=== PATIENT | female | born 2000 | race African-American/Black ===

== ENCOUNTER 2020-09-22 05:10 | Emergency (ER) | payer OTHER ==
[~2020-09-22] VITALS: Ht 172.7 cm; Wt 74.2 kg
[2020-09-22] MEDS ORDERED: CETI5SOL3 PO (05:21)
[2020-09-22 06:15] VITALS: BP 113/73
[2020-09-22] MEDS ORDERED: predniSONE 20 MG TAB PO ONE (06:35)
[2020-09-22] MEDS ORDERED: LORATADINE 10 MG TAB PO ONE (06:35)
[2020-09-22] MEDS ORDERED: VENTAER INH (06:37)
[2020-09-22] MEDS ORDERED: CLAR10CA3 PO (06:37)
[2020-09-22] MEDS ORDERED: PRED20TA PO (06:37)
== END 2020-09-22 06:48 | disposition home or self-care (01) ==
LOC: M ED 05:10
DX: L29.9 Pruritus, unspecified (principal); T78.40XA Allergy, unspecified, initial encounter
CPT/HCPCS: 99284; J7512

== ENCOUNTER 2020-10-03 11:33 | Inpatient (IN) | payer OTHER ==
[~2020-10-03] VITALS: Ht 172.7 cm; Wt 71.0 kg
[~2020-10-03 11:33] MED LIST: CETI5SOL3 PO; CLAR10CA3 PO; PRED20TA PO; VENTAER INH
[2020-10-03] MEDS ORDERED: NS 1,000 ML IV SCH (12:00)
[2020-10-03 12:14] LABS: BASO % 0.3 % (0.0-1.0); EOS % 0.4 % (0.0-3.0); HEMATOCRIT 41.6 % (36.0-47.0); HEMOGLOBIN 14.2 g/dl (12.0-15.5); LYMPH # 1.8 10^3/uL (1.5-5.0); LYMPH % 16.7 % (24.0-44.0); MEAN CORPUSCULAR HEMOGLOBIN 30.5 pg (27.0-33.0); MEAN CORPUSCULAR HGB CONC 34.1 g/dl (32.0-36.5); MEAN CORPUSCULAR VOLUME 89.5 fl (80.0-96.0); MONO # 0.5 10^3/uL (0.0-0.8); MONO % 4.6 % (2.0-8.0); NEUTROPHILS # 8.4 10^3/uL (1.5-8.5); NEUTROPHILS % 77.5 % (36.0-66.0); PLATELET COUNT, AUTOMATED 254 10^3/uL (150-450); RED BLOOD COUNT 4.65 10^6/uL (4.00-5.40); WHITE BLOOD COUNT 10.9 10^3/uL (4.0-10.0)
[2020-10-03 12:33] LABS: AMPHETAMINES LEVEL URINE NEGATIVE (NEGATIVE); BARBITURATES URINE NEGATIVE (NEGATIVE); BENZODIAZEPINES URINE NEGATIVE (NEGATIVE); CANNABINOIDS URINE NEGATIVE (NEGATIVE); COCAINE METABOLITE URINE NEGATIVE (NEGATIVE); METHADONE URINE NEGATIVE (NEGATIVE); OPIATES URINE NEGATIVE (NEGATIVE); PHENCYCLIDINE URINE NEGATIVE (NEGATIVE)
[2020-10-03 12:34] LABS: HCG, SERUM QUALITATIVE NEGATIVE (NEGATIVE)
[2020-10-03 12:47] LABS: ACETAMINOPHEN LEVEL < 2.0 UG/ML (10.0-30.0); ALBUMIN 4.3 GM/DL (3.2-5.2); ALT/SGPT 19 U/L (12-78); BILIRUBIN,DIRECT 0.3 MG/DL (0.0-0.2); BLOOD UREA NITROGEN 8 MG/DL (7-18); CALCIUM LEVEL 9.4 MG/DL (8.5-10.1); CARBON DIOXIDE LEVEL 25 MEQ/L (21-32); CHLORIDE LEVEL 108 MEQ/L (98-107); CPK CREATINE PHOSPHOKINASE 91 U/L (26-192); CREATININE FOR GFR 0.88 MG/DL (0.55-1.30); ETHYL ALCOHOL (ETHANOL) 0.052 % (0.000-0.010); GLOMERULAR FILTRATION RATE > 60.0 (>60); GLUCOSE, FASTING 78 MG/DL (70-100); POTASSIUM SERUM 3.9 MEQ/L (3.5-5.1); SALICYLATE LEVEL < 1.7 MG/DL (5.0-30.0); SODIUM LEVEL 140 MEQ/L (136-145); THYROID STIMULATING HORMONE 0.822 uIU/ML (0.358-3.740); TOTAL PROTEIN 7.6 GM/DL (6.4-8.2)
[2020-10-03] MEDS ORDERED: VITMTA PO (17:21)
[2020-10-03] MEDS ORDERED: BENA25CA4 PO ×2 (17:21)
[2020-10-03] MEDS ORDERED: VENTAER INH (17:21)
[2020-10-03] MEDS ORDERED: HOME MED LIST COMPLETE! XX SCH (17:25)
[2020-10-03] MEDS ORDERED: MAALOX 30 ML SUSP *UDC PO PRN (19:05)
[2020-10-03] MEDS ORDERED: traZODone 50 MG TAB PO PRN (19:05)
[2020-10-03] MEDS ORDERED: ACETAMINOPHEN TAB 650MG DOSE (2X325MG) PO PRN (19:05)
[2020-10-03] MEDS ORDERED: OLANZapine ORAL DISINTEGRATING TAB 5MG PO PRN (19:05)
[2020-10-03] MEDS ORDERED: ALBUTEROL 90 MCG/ACT 8GM HFA INHALER INH PRN (19:05)
[2020-10-03] MEDS ORDERED: MOM 30ML SUSPENSION UDC PO PRN (19:05)
[2020-10-03 20:38] LABS: RSV AMPLIFICATION NEGATIVE (NEGATIVE)
[2020-10-03 22:14] VITALS: BP 120/75
[2020-10-04] MEDS: NICOTINE 21MG/24HR 1 EA TRANSDERMAL TD SCH (09:00)
--- NOTE | 2020-10-04 09:29 | ECGEPIP ---
[facility] - ED Test Date: 2020-10-03 Pat Name: MARY DAVIES Department: Room: - Gender: Female Yarn Inspector: eileen : 2000 Requested By: Martina Salas Order Number: [id number] Reading MD: Martina Salas Measurements Intervals [place] Rate: 89 P: 59 [place]: 160 QRS: 43 QRSD: 82 T: 38 QT: 360 QTc: 438 Interpretive Statements Normal sinus rhythm No prior Electronically Signed on 10-04-2020 9:28:52 EDT by Martina Salas
[2020-10-04] MEDS: MULTIVITAMINS/MINERALS THERAP 1 TAB PO SCH (10:41)
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
--- NOTE | 2020-10-04 15:27 | HPEPDOC ---
[facility] Medical History & Physical Date of Admission Oct 03, 2020 Date of Service: Oct 04, 2020 History and Physical CHIEF COMPLAINT: Suicidal Attempt HISTORY OF PRESENT ILLNESS: Ms. Perez is a 20-year-old female history of depression who was in the inpatient mental health unit after a suicide attempt with Benadryl. She is seen this afternoon. She denies any fever or chills, chest pain, dyspnea, abdominal pain, diarrhea, or dysuria. She does not have any further questions or concerns. PAST MEDICAL HISTORY: 1. Depression PAST SURGICAL HISTORY: 1. Ribera teeth removal. SOCIAL HISTORY: Tobacco use: Denies ETOH: Occasional alcoholic drink on the weekends Illicit drug use: Denies FAMILY HISTORY: Father: She does not know her father Mother: Diabetes mellitus ALLERGIES: Please see below. REVIEW OF SYSTEMS: CONSTITUTIONAL: Denies any fever or chills. ENT: Denies sore throat. RESPIRATORY: Denies shortness of breath. Denies cough. CARDIOVASCULAR: Denies chest pain. GASTROINTESTINAL: Denies abdominal pain. Denies diarrhea. Denies constipation GENITOURINARY: Denies dysuria. CUTANEOUS: Denies rashes. HEMATOLOGY: Denies bruising. NEUROLOGICAL: Denies neuropathy. PSYCHOLOGICAL: Denies anxiety. Denies depression. HOME MEDICATIONS: Please see below. PHYSICAL EXAMINATION: VITAL SIGNS: Temperature 98.2, pulse 66, respiratory rate 20, blood pressure 120/75, pulse oximetry 99% on room air. GENERAL: Comfortable, in no apparent distress. HEENT: Head normocephalic/atraumatic, EOMI, sclera clear. NECK: Supple. RESPIRATORY: Lungs clear to auscultation bilaterally, no rales, wheeze or rhonchi. CARDIOVASCULAR: Regular rate and rhythm. ABDOMEN: Soft, nontender, no guarding or rebound tenderness. Normal bowel sounds. MUSCLE SKELETAL: Muscle strength 5/5 in all extremities. NEUROLOGICAL: CN 312 grossly intact, no focal deficits noted. PSYCHOLOGICAL: Normal mood and affect LABORATORY DATA: See below. IMAGING: None MICROBIOLOGY: Please see below. ASSESSMENT and PLAN: 1. Suicide attempt by overdose Being managed in the inpatient mental health unit 2. Depression Being managed in the inpatient mental health unit Thank you for consulting us. We will sign off at this time. If there is any further questions or concerns, please do not hesitate to contact us Vital Signs Vital Signs Date Time Temp Pulse Resp B/P (MAP) Pulse Ox O2 Delivery O2 Flow Rate FiO2 10/03/20 22:14 98.2 66 20 120/75 (90) 99 Room Air Laboratory Data Labs 24H Laboratory Tests 2 10/03/20 19:49: Coronavirus (COVID-19)(PCR) NEGATIVE, Influenza Type A (RT-PCR) NEGATIVE, Influenza Type B (RT-PCR) NEGATIVE, Respiratory Syncytial Virus (PCR) NEGATIVE Home Medications Scheduled Multivitamins (Thera M Plus Tablet) 1 Each Tablet, 1 TAB PO DAILY Scheduled PRN Albuterol Sulfate (Ventolin Hfa) 18 Gm Hfa.aer.ad, 2 PUFFS INH QID PRN for SOB/WHEEZING Diphenhydramine HCl (Benadryl) 25 Mg Capsule, 25 MG PO QHS PRN for SLEEP Diphenhydramine HCl (Benadryl) 25 Mg Capsule, 25 MG PO BID PRN for ALLERGY SYMPTOMS Allergies Coded Allergies: No Known Allergies (Unverified , 09/22/20) A-FIB/CHADSVASC A-FIB History Current/History of A-Fib/PAF?: No Age/Risk Factor Scoring CHADSVASC: CHADSVASC Response (Comments) Value Age Risk Factor Age < 65 years old 0 Gender Risk Factor Female 1 Hx of CHF No 0 Hx of HTN No 0 Hx of Stroke/TIA/or VTE No 0 Hx of Diabetes No 0 Total 1 EVER BEARDEN DO Oct 04, 2020 15:27
[2020-10-05 06:53] VITALS: BP 99/58
[2020-10-05 08:23] LABS: CHOLESTEROL RISK RATIO 2.431 (<5)
[2020-10-05] MEDS: NICOTINE 21MG/24HR 1 EA TRANSDERMAL TD SCH (09:00)
[2020-10-05] MEDS: MULTIVITAMINS/MINERALS THERAP 1 TAB PO SCH (09:34)
[2020-10-05] MEDS: SERTRALINE HCL 50 MG TAB PO SCH (09:34)
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
[2020-10-05 18:11] VITALS: BP 129/87
[2020-10-06 05:59] VITALS: BP 110/55
[2020-10-06] MEDS: SERTRALINE HCL 50 MG TAB PO SCH (09:25)
[2020-10-06] MEDS: MULTIVITAMINS/MINERALS THERAP 1 TAB PO SCH (09:25)
--- NOTE | 2020-10-06 12:47 | MHIPNPDOC ---
[facility] Progress Note Progress Note DATE OF SERVICE: 10/06/20 HISTORY: As per ED report: " Pt reported to ED staff upon arrival that she was having s/i's, feelings of depression, being overwhelmed, and that she took 10 benadryl and drink 2 glasses of wine before presenting to the ED. When ED MD asked pt why she took the medication, pt stated "I don't know, maybe I just wanted to sleep." Pt also reported to ED MD that she took the 10 benadryl and drink the two glasses of wine at about 10-11am. Pt was unable to deny the overdose being intentional, or being a suicide attempt. T/w met with pt at bedside. Pt was a poor historian and unreliable, as some of the things she reported to t/w were inconsistent with what she reported to other ED staff prior. 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 Pt reports she is struggling to develop healthy coping skills and states she has been living an "unhealthy lifestyle" and making "unhealthy choices" in order to try to cope with her feelings and stressors. 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 pt reports these stressors, poor coping skills, and feeling depressed the week prior to her period every month has all added up and led to her feeling overwhelmed. Pt reports she has been feeling this way since March, and states today's issues began today. Pt reports no issues with appetite, sleep, energy, motivation, interest or enjoyment. Pt reports having adequate support, as she has been resi ding in the [facility] for about a year and a half and is close friends with her roommate and one other soldier here who she speaks with daily. VITAL SIGNS: See below. CURRENT MEDICATIONS: See below. MENTAL STATUS EXAMINATION: Patient is a 20-year old Single, [employer] [place], Female, who is reporting decreased depression and anxiety and denies continued suicidal ideations Speech: Is fluid, conversant, normal rate, tone and volume Language skills are intact Thought processes including: linear and goal oriented Thought content: denies depression and anxiety. Denies suicidal/homicidal ideation, planning or intent. Abstract reasoning, and computation: fair Description of associations: denies, none observed Description of abnormal or psychotic thoughts: denies, none observed. Judgment: fair Insight: fair Orientation: alert and oriented to person, place, time and situation Recent and remote memory: intact Attention span and concentration: good Language: expansive Fund of knowledge: average Mood: Euthymic Mood Affect: reactive DIAGNOSES: 1. Unspecified Depressive Disorder 2. R/O PMDD 3. R/O Alcohol abuse. ASSESSMENT: Patient reports that she had taken an overdose of Benadryl as a suicide attempt. She reports having an a year ago and since then every month around the time of her menses she has an increase in depressive symptoms and this time, she had exceptionally increased depression. In today's interview she reports that she has had no side effects from a second dose of Zoloft and reports a decrease in depression, no anxiety and denies suicidal ideations. She states that she would like to be discharged, has a supportive Chain of Command and feels that she can be safe from self harm. MANAGEMENT PLAN: Continue medications and supportive therapy as ordered. Probably discharge tomorrow TIME SPENT: 25 minutes. Vital Signs Vital Signs Date Time Temp Pulse Resp B/P (MAP) Pulse Ox O2 Delivery O2 Flow Rate FiO2 10/06/20 05:59 98.6 65 20 110/55 (73) 100 Room Air Current Medications Current Medications Medications (Trade) Dose Ordered Sig/Mary Route PRN Reason Start Time Stop Time Status Last Admin Dose Admin Acetaminophen (Tylenol Tab) 650 mg Q6HP PRN PO HEADACHE or MILD DISCOMFORT 10/03/20 19:05 Al Hydrox/Mg Hydrox/Simethicone (Mylanta) 30 ml Q4HP PRN PO HEARTBURN/INDIGESTION 10/03/20 19:05 Albuterol Sulfate (Proventil, Ventolin Hfa) 2 puff QID PRN INH SOB/WHEEZING 10/03/20 19:05 Home Med (Med Rec Complete!) ASDIRECTED XX 10/03/20 17:25 10/03/20 17:24 DC Magnesium Hydroxide (Milk Of Magnesia) 30 ml DAILYPRN PRN PO CONSTIPATION 10/03/20 19:05 Multivitamins (Theragram-M) 1 tab DAILY PO 10/04/20 09:00 10/06/20 09:25 Nicotine (Nicoderm Cq 21mg) 1 patch DAILY TD 10/04/20 09:00 10/05/20 09:45 DC Olanzapine (ZyPREXA ZYDIS) 5 mg Q6HP PRN PO AGITATION 10/03/20 19:05 10/05/20 18:05 Sertraline HCl (Zoloft) 50 mg QAM PO 10/05/20 09:00 10/06/20 09:25 Sodium Chloride 1,000 ml @ 100 mls/hr Q10H IV 10/03/20 12:00 10/03/20 21:39 DC 10/03/20 11:59 Trazodone HCl (Desyrel) 50 mg QHSP PRN PO INSOMNIA 10/03/20 19:05 Allergies Coded Allergies: No Known Allergies (Unverified , 09/22/20) VIKKI STEWARD NP Oct 06, 2020 12:41
[2020-10-06] MEDS ORDERED: SERT50TA29 PO (13:04)
[2020-10-06 17:45] VITALS: BP 128/75
[2020-10-07 07:22] VITALS: BP 112/57
[2020-10-07] MEDS: SERTRALINE HCL 50 MG TAB PO SCH (09:16)
[2020-10-07] MEDS: MULTIVITAMINS/MINERALS THERAP 1 TAB PO SCH (09:16)
--- NOTE | 2020-10-07 11:17 | MHDSPDOC ---
[facility] Discharge Summary Discharge Summary DATE OF ADMISSION: Oct 03, 2020 at 19:03 DATE OF DISCHARGE: October 07, 2020 at 1110 DISCHARGE DIAGNOSES: 1. Unspecified Depressive Disorder 2. R/O PMDD 3. R/O Alcohol abuse REASON FOR ADMISSION: Pt reported to ED staff upon arrival that she was having s/i's, feelings of depression, being overwhelmed, and that she took 10 Benadryl and drink 2 glasses of wine before presenting to the ED. When ED MD asked pt why she took the medication, pt stated "I don't know, maybe I just wanted to sleep." Pt also reported to ED MD that she took the 10 Benadryl and drink the two glasses of wine at about 10-11am. Pt was unable to deny the overdose being intentional, or being a suicide attempt. Per ED REPORT. Pt at bedside. Pt was a poor historian and unreliable, as some of the things she reported to t/w were inconsistent with what she reported to other ED staff prior. 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 Pt reports she is struggling to develop healthy coping skills and states she has been living an "unhealthy lifestyle" and making "unhealthy choices" in order to try to cope with her feelings and stressors. 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 pt reports these stressors, poor coping skills, and feeling depressed the week prior to her p eriod every month has all added up and led to her feeling overwhelmed. Pt reports she has been feeling this way since March, and states today's issues began today. Pt reports no issues with appetite, sleep, energy, motivation, interest or enjoyment. 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 VITAL SIGNS: See below. CONSULTANTS INVOLVED: See Medical H + P by Hospitalist TREATMENT AND PROGRESS ON THE UNIT: Patient was admitted to the [facility] on a 39 legal status he was afforded the following treatment modalities: 1) Individual Therapy 2) Group Therapy 3) Medication Management 4) Milieu Therapy 5) Safe Environment HOSPITAL COURSE: Patient was admitted to [facility] on a 39 legal status following an overdose of Benadryl. Patient reports that she had taken the overdose of Benadryl as a suicide attempt. She reports having an a year ago and since then every month around the time of her menses she has an increase in depressive symptoms and this time, she had exceptionally increased depression. She was started on Zoloft and had initially complained about being very anxious, she agreed to take the second dose of Zoloft and reported no side effects from a second dose of Zoloft and reports a decrease in depression, no anxiety and denies suicidal ideations. She states that she would like to be discharged, has a supportive Chain of [employer] and feels that she can be safe from self harm. Advised to abstain from drugs and alcohol. DISCHARGE ASSESSMENT: In today's interview, patient is alert and oriented, pts dress is appropriate. Hygiene and grooming is well-kempt. Smiles on approach and is pleasant and engaged in the interview. Denies depression and anxiety. Denies suicidal and homicidal ideation, planning or intent. Denies and is not observed with christin, psychotic symptoms of delusions, bizarre thinking, obsessions, paranoia, ruminations illogical thoughts, flight of ideas or having poor insight and judgement. Patient has normal mentation, declines further hospitalization on a voluntary status and meets criteria for discharge today. MENTAL STATUS EXAMINATION ON DISCHARGE: Patient is a 20 year old Single, [employer], who was admitted to [facility] following an overdose of Benadryl Speech: Is fluid, conversant, normal rate, tone and volume Language skills are intact Thought processes including: linear and goal oriented Thought content: denies depression and anxiety. Denies suicidal/homicidal ideation, planning or intent. Abstract reasoning, and computation: fair Description of associations: denies, none observed Description of abnormal or psychotic thoughts: denies, none observed. Judgment: fair Insight: fair Orientation: alert and oriented to person, place, time and situation Recent and remote memory: intact Attention span and concentration: good Language: expansive Fund of knowledge: average Mood: Euthymic Mood Affect: reactive MEDICATIONS ON DISCHARGE: See Medication Reconciliation PLAN/FOLLOWUP ARRANGEMENTS: [facility] The amount of time spent in the coordination of care for this patient was approximately 25 minutes. ETOH/Disorder Med Rx ETOH/DRUG DISORDER RX: Offrd @ d/c & pt refused Vital Signs/I&Os Vital Signs Date Time Temp Pulse Resp B/P (MAP) Pulse Ox O2 Delivery O2 Flow Rate FiO2 10/07/20 07:22 98.5 60 16 112/57 (75) 100 Room Air Medications Scheduled Multivitamins (Thera M Plus Tablet) 1 Each Tablet, 1 TAB PO DAILY, (Reported) Sertraline HCl (Sertraline HCl) 50 Mg Tablet, 50 MG PO QAM for Depresion, #7 Scheduled PRN Albuterol Sulfate (Ventolin Hfa) 18 Gm Hfa.aer.ad, 2 PUFFS INH QID PRN for SOB/WHEEZING, (Reported) Diphenhydramine HCl (Benadryl) 25 Mg Capsule, 25 MG PO QHS PRN for SLEEP, (Reported) Diphenhydramine HCl (Benadryl) 25 Mg Capsule, 25 MG PO BID PRN for ALLERGY SYMPTOMS, (Reported) Allergies Coded Allergies: No Known Allergies (Unverified , 09/22/20) VIKKI STEWARD NP Oct 07, 2020 11:17
== END 2020-10-07 11:25 | disposition home or self-care (01) | DRG 881 ==
LOC: M ED 11:33 → M ED INP 19:03 → M PSY 21:35
PROVIDERS: ADMIT Psychiatry & Neurology Psychiatry; ATTEND Psychiatry & Neurology Psychiatry
DX: F32.9 Major depressive disorder, single episode, unspecified (principal); R45.851 Suicidal ideations; F32.81 Premenstrual dysphoric disorder; F10.10 Alcohol abuse, uncomplicated; Z79.899 Other long term (current) drug therapy

== ENCOUNTER 2021-07-21 12:14 | Inpatient (IN) | payer OTHER ==
[~2021-07-21] VITALS: Ht 172.7 cm; Wt 76.4 kg
[~2021-07-21 12:14] MED LIST changes: +BENA25CA4 PO; +SERT50TA29 PO; +VITMTA PO
[2021-07-21 12:59] LABS: HEMATOCRIT 41.3 % (36.0-47.0); MEAN CORPUSCULAR HEMOGLOBIN 30.5 pg (27.0-33.0); MEAN CORPUSCULAR HGB CONC 33.9 g/dl (32.0-36.5); PLATELET COUNT, AUTOMATED 202 10^3/uL (150-450); RED BLOOD COUNT 4.59 10^6/uL (4.00-5.40); WHITE BLOOD COUNT 4.3 10^3/uL (4.0-10.0)
[2021-07-21 13:32] LABS: HCG, SERUM QUALITATIVE NEGATIVE (NEGATIVE)
[2021-07-21 13:49] LABS: ACETAMINOPHEN LEVEL < 2.0 UG/ML (10.0-30.0); ALT/SGPT 21 U/L (12-78); BILIRUBIN,DIRECT 0.2 MG/DL (0.0-0.2); BILIRUBIN,TOTAL 0.4 MG/DL (0.2-1.0); BLOOD UREA NITROGEN 8 MG/DL (7-18); CALCIUM LEVEL 9.3 MG/DL (8.5-10.1); CARBON DIOXIDE LEVEL 27 MEQ/L (21-32); CHLORIDE LEVEL 110 MEQ/L (98-107); CREATININE FOR GFR 0.83 MG/DL (0.55-1.30); ETHYL ALCOHOL (ETHANOL) < 0.003 % (0.000-0.010); GLOMERULAR FILTRATION RATE > 60.0 (>60); GLUCOSE, FASTING 91 MG/DL (70-100); POTASSIUM SERUM 4.1 MEQ/L (3.5-5.1); SALICYLATE LEVEL < 1.7 MG/DL (5.0-30.0); SODIUM LEVEL 143 MEQ/L (136-145); TOTAL PROTEIN 7.4 GM/DL (6.4-8.2)
[2021-07-21 14:24] LABS: RSV AMPLIFICATION NEGATIVE (NEGATIVE)
[2021-07-21 15:36] LABS: AMPHETAMINES LEVEL URINE NEGATIVE (NEGATIVE); BARBITURATES URINE NEGATIVE (NEGATIVE); BENZODIAZEPINES URINE NEGATIVE (NEGATIVE); CANNABINOIDS URINE NEGATIVE (NEGATIVE); COCAINE METABOLITE URINE NEGATIVE (NEGATIVE); METHADONE URINE NEGATIVE (NEGATIVE); OPIATES URINE NEGATIVE (NEGATIVE); PHENCYCLIDINE URINE NEGATIVE (NEGATIVE)
[2021-07-22] MEDS ORDERED: HOME MED LIST COMPLETE! XX SCH (06:20)
[2021-07-22] MEDS ORDERED: CETI10TA PO (06:20)
[2021-07-24] MEDS: NICOTINE 14 MG/24 HR TRANSDERMAL TD SCH (09:00)
[2021-07-24] MEDS ORDERED: CETIRIZINE (ZyrTEC) 10 MG TAB PO PRN (13:35)
[2021-07-24] MEDS ORDERED: diphenhydrAMINE 25MG CAP PO PRN (13:35)
[2021-07-24] MEDS ORDERED: MOM 30ML SUSPENSION UDC PO PRN (13:35)
[2021-07-24] MEDS ORDERED: traZODone 50 MG TAB PO PRN (13:35)
[2021-07-24] MEDS ORDERED: ACETAMINOPHEN TAB 650MG DOSE (2X325MG) PO PRN (13:35)
[2021-07-24] MEDS ORDERED: MAALOX 30 ML SUSP *UDC PO PRN (13:35)
[2021-07-25 06:49] VITALS: BP 108/61
[2021-07-25] MEDS: NICOTINE 14 MG/24 HR TRANSDERMAL TD SCH (08:56)
[2021-07-25] MEDS: FLUoxetine 10 MG CAP PO SCH (16:14)
[2021-07-25] MEDS ORDERED: BENZONATATE 100MG CAPSULE PO PRN (22:20)
[2021-07-25] MEDS: CEPACOL LOZENGE PO PRN (22:23)
[2021-07-26 06:37] VITALS: BP 115/67
[2021-07-26] MEDS: NICOTINE 14 MG/24 HR TRANSDERMAL TD SCH (09:00)
[2021-07-26] MEDS: FLUoxetine 10 MG CAP PO SCH (09:55)
[2021-07-26] MEDS: CEPACOL LOZENGE PO PRN (23:20)
[2021-07-27 06:00] VITALS: BP 92/52
[2021-07-27] MEDS: FLUoxetine 10 MG CAP PO SCH (08:45)
[2021-07-27] MEDS: NICOTINE 14 MG/24 HR TRANSDERMAL TD SCH (08:50)
[2021-07-27 18:00] VITALS: BP 139/76
[2021-07-27 20:56] LABS: GC DNA AMPLIFICATION NEGATIVE (NEGATIVE)
[2021-07-27] MEDS ORDERED: PHENAZOPYRIDINE 100 MG TAB PO ONE (23:50)
[2021-07-28 06:33] VITALS: BP 121/69
[2021-07-28] MEDS: NICOTINE 14 MG/24 HR TRANSDERMAL TD SCH (09:00)
[2021-07-28] MEDS: FLUoxetine 10 MG CAP PO SCH (09:03)
[2021-07-28] MEDS ORDERED: FLUO10CA18 PO (10:55)
== END 2021-07-28 13:10 | disposition home or self-care (01) | DRG 881 ==
LOC: M ED 12:14 → M ED INP 07-24 13:37 → M PSY 07-24 14:55
PROVIDERS: ADMIT Psychiatry & Neurology Psychiatry; ATTEND Psychiatry & Neurology Psychiatry
DX: F32.A Depression, unspecified (principal); J10.00 Influenza due to other identified influenza virus with unspecified type of pneumonia; R45.851 Suicidal ideations; F32.81 Premenstrual dysphoric disorder